=== PATIENT | male | born 1965 | race Caucasian/White ===

== ENCOUNTER 2018-11-14 19:22 | Emergency (ER) | payer SELFPAY ==
--- NOTE | 2018-11-14 19:55 | NUR ---
1st attempt to call patient in for triage, patient refuses to enter the ER. Patient states " I am just going to sleep here for a bit".
--- NOTE | 2018-11-14 20:07 | NUR ---
Attempted to call patient in for triage. Patient refused to come in after being prompted by this RN. Patient currently remains in the waiting area, requests to continue sleeping.
--- NOTE | 2018-11-14 20:13 | NUR ---
Patient called into room for triage, patient fell asleep during triage on multiple occasions. Patient evaluated to obtain information regarding his pain , location, severity. Patient then invited back in order to be placed into an ER bed. Patient stood up, walked up to the exit door. Patient then states " Say goodbye to your hospital". After this the patient proceeds to leave the ER waiting area, and walks off the property.
== END 2018-11-14 20:16 | disposition left against medical advice (07) ==
LOC: ER 19:24
DX: Z53.21 Procedure and treatment not carried out due to patient leaving prior to being seen by health care provider (principal)

== ENCOUNTER 2020-05-26 06:36 | Emergency (ER) | payer SELFPAY ==
[~2020-05-26] VITALS: Ht 175.3 cm; Wt 81.6 kg
--- NOTE | 2020-05-26 06:51 | NUR ---
Dr. Resendez at bedside for MSE
[2020-05-26] MEDS ORDERED: SULFAMETH/TRIMETH 800/160 MG TABLET PO ONE (07:00)
[2020-05-26] MEDS ORDERED: HYDROCODONE/APAP 10-325 MG TABLET ONE (07:00)
[2020-05-26] MEDS ORDERED: SULFAMETH/TRIMETH 800/160 MG TABLET ONE (07:00)
[2020-05-26] MEDS ORDERED: HYDROCODONE/APAP 10-325 MG TABLET PO ONE (07:00)
--- NOTE | 2020-05-26 07:02 | NUR ---
Patient discharged to home in stable condition. Written and verbal after care instructions given. Patient verbalizes understanding of instructions. Stressed follow up or return to ER for worsening s/s. AA/ox4. able to speak in complete sentences no s/s of distress in stable condition ambulatory with steady gait all belongings with pt
[2020-05-26 07:04] VITALS: BP 143/90
== END 2020-05-26 07:18 | disposition home or self-care (01) ==
LOC: ER 06:48
DX: S50.311A Abrasion of right elbow, initial encounter (principal); L08.9 Local infection of the skin and subcutaneous tissue, unspecified; B95.8 Unspecified staphylococcus as the cause of diseases classified elsewhere; X58.XXXA Exposure to other specified factors, initial encounter; Y92.89 Other specified places as the place of occurrence of the external cause; K08.89 Other specified disorders of teeth and supporting structures; F10.20 Alcohol dependence, uncomplicated; Z59.0 Homelessness; F17.200 Nicotine dependence, unspecified, uncomplicated
CPT/HCPCS: A4663

== ENCOUNTER 2021-03-09 20:57 | Emergency (ER) | payer SELFPAY ==
[~2021-03-09] VITALS: Ht 180.3 cm; Wt 81.6 kg
--- NOTE | 2021-03-09 21:10 | NUR ---
Abiodun brought in by [address] [employer]. Patient handcuffed to [facility] (by [employer] Officers) upon entry to ER. Patient was found in the middle of the street - also (according to [employer]) was going to stores and throwing objects and breaking things. Patient is A&Ox2. Anxious, paranoid, and emotionally labile (screaming, yelling, combative). Poor historian and unable to provide many details in regards to medical history. Sinus Rhythm on the monitor. No reports of any chest pain, no diaphoresis, afebrile, no chills. Patient is saturating >94% on Room air. No labored breathing. No dyspnea. No SOB. GI/: No reported issues.
[2021-03-09] MEDS ORDERED: IV NORMAL SALINE 1000 ML BAG IV ONE (21:15)
[2021-03-09 21:32] LABS: BASOPHILS # (AUTO) 0.1 K/uL (0.0-8.0); BASOPHILS % (AUTO) 1.2 % (0.0-2.0); EOSINOPHILS # (AUTO) 0.1 K/uL (0.0-0.7); EOSINOPHILS % (AUTO) 2.3 % (0.0-7.0); HEMATOCRIT 41.4 % (36.7-47.1); HEMOGLOBIN 14.4 g/dL (12.5-16.3); LYMPHOCYTES # (AUTO) 2.1 K/uL (20.0-40.0); LYMPHOCYTES % (AUTO) 39.9 % (20.5-51.5); MEAN CORPUSCULAR HEMOGLOBIN 35.1 uug (23.8-33.4); MEAN CORPUSCULAR HGB CONC 35 g/dL (32.5-36.3); MEAN CORPUSCULAR VOLUME 100.9 fL (73.0-96.2); MONOCYTES # (AUTO) 0.6 K/uL (2.0-10.0); MONOCYTES % (AUTO) 10.9 % (0.0-11.0); NEUTROPHILS # (AUTO) 2.4 K/uL (1.8-8.9); NEUTROPHILS % (AUTO) 45.7 % (38.5-71.5); PLATELET COUNT (AUTO) 193 K/uL (152-348); WHITE BLOOD COUNT (AUTO) 5.3 K/uL (3.6-10.2)
[2021-03-09 21:35] LABS: CREATININE 0.9 mg/dL (0.6-1.3); POTASSIUM 2.9 mmol/L (3.5-5.1)
[2021-03-09 21:47] LABS: BILIRUBIN,DIRECT 0.3 mg/dL (0.0-0.2); BILIRUBIN,TOTAL 0.6 mg/dL (0.2-1.0); TOTAL PROTEIN, SERUM 7.6 g/dL (6.4-8.2)
[2021-03-09] MEDS ORDERED: HALOPERIDOL LACTATE 5 MG/1 ML VIAL IM ONE (22:00)
[2021-03-09] MEDS ORDERED: LORAZEPAM 2 MG/1 ML VIAL IM ONE (22:00)
[2021-03-09] MEDS ORDERED: HALOPERIDOL LACTATE 5 MG/1 ML VIAL ONE (22:02)
[2021-03-09] MEDS ORDERED: LORAZEPAM 2 MG/1 ML VIAL ONE (22:02)
--- NOTE | 2021-03-09 22:05 | NUR ---
Patient screaming at yelling. "Ill kill you", "Im going to meet you on the other side of the street", "You aint gonna make it". Attempts made to calm patient down. Will monitor and assess.
--- NOTE | 2021-03-09 22:10 | NUR ---
Patient got out of bed, ripped out IV and started to threaten ER staff. Yelling, screaming, shouting, throwing punches all the meanwhile his blood is dripping all over the floor and on staff. FANI MCBRIDE CALLED. Patient was escorted back to his bed by security and nursing staff. Patient put on restraints for safety of himself and safety of ER staff. Pulses palpated in all four extremities, warmth, color, and cap refill also present in all four extremities.
--- NOTE | 2021-03-09 23:00 | NUR ---
Patient is in bed. Restraints on - See Restraint Intervention form. Continous monitoring in place. Safety measures in place. Put on 3L Nasal Canula at this time
[2021-03-09] MEDS ORDERED: KETAMINE HCL 500 MG/10 ML INJ ONE (23:08)
--- NOTE | 2021-03-09 23:35 | NUR ---
Restraints removed at this time - safety measures in place
[2021-03-10] MEDS ORDERED: KETAMINE HCL 500 MG/10 ML INJ IM ONE
[2021-03-10 01:22] LABS: *BILIRUBIN,URIN NEGATIVE (NEGATIVE); *BLOOD, URINE 1+ (NEGATIVE); *CLARITY,URINE CLEAR (CLEAR); *COLOR,URINE YELLOW (YELLOW); *KETONES,URINE NEGATIVE (NEGATIVE); LEUKOCYTE ESTERASE ,URINE NEGATIVE (NEGATIVE); NITRITE, URINE NEGATIVE (NEGATIVE); UGLUCOSE NEGATIVE (NEGATIVE)
[2021-03-10 01:33] LABS: BACTERIA,URINE NONE SEEN /HPF (NONE SEEN); RBC,URINE 0-3 /HPF (0-3); SQUAMOUS EPITHELIAL CELL,UR FEW /HPF (NONE SEEN); WBC,URINE 0-3 /HPF (0-3)
[2021-03-10 01:35] LABS: *AMPHETAMINE, URINE NEGATIVE (NEGATIVE); *CANNABINOID, URINE NEGATIVE (NEGATIVE); *COCCAINE, URINE NEGATIVE (NEGATIVE); *OPIATE, URINE NEGATIVE (NEGATIVE); *PHENCYCLIDINE SCREEN,URINE NEGATIVE (NEGATIVE)
[2021-03-10] MEDS ORDERED: THIAMINE HCL 200 MG/2 ML VIAL IV ONE (02:45)
[2021-03-10] MEDS ORDERED: IV LACTATED RINGERS SOLUTION 1,000 ML IV PRN (02:45)
[2021-03-10] MEDS ORDERED: FOLIC ACID 5 MG/ML VIAL IV ONE (02:45)
[2021-03-10] MEDS ORDERED: THIAMINE HCL 200 MG/2 ML VIAL ONE (02:49)
[2021-03-10] MEDS ORDERED: POTASSIUM CHLORIDE 50 ML ONE ×4 (02:49→08:18)
[2021-03-10] MEDS ORDERED: MAGNESIUM SULFATE/D5W 100 ML ONE ×2 (02:50→03:27)
--- NOTE | 2021-03-10 03:00 | NUR ---
Patient put on bilateral wrist restraints for disruption of care. Patient pulling at newly inserted IV line, risk for fall, pulling at wiring. Danger to self - and danger to others. Neuro checks done. Warmth, cap refill, feeling, strength present in all four extremities.
[2021-03-10] MEDS: MAGNESIUM SULFATE/D5W 100 ML IV SCH ×2 (03:06→03:44)
--- NOTE | 2021-03-10 03:07 | NUR ---
Folic Acid not able to be given - Medication not available in pyxis
[2021-03-10] MEDS: POTASSIUM CHLORIDE 50 ML IV SCH ×4 (04:43→08:03)
--- NOTE | 2021-03-10 05:20 | NUR ---
Restraints removed at this time. VSS.
--- NOTE | 2021-03-10 07:18 | NUR ---
PT IS RESTING IN BED COMFORTABLY. NO S/S OF ACUTE DISTRESS AT THIS TIME. CONTINUE TO MONITOR THE PT.
--- NOTE | 2021-03-10 08:31 | NUR ---
PT ATE BREAKFAST, 80% OF THE BREAKFAST TRAY. PT IS RESTING IN BED NO S/S OF DISTRESS. CONTINUE TO MONITOR THE PT.
--- NOTE | 2021-03-10 08:44 | NUR ---
TAX PROCESSOR KENNA WAS CALLED ACCORDING TO DR GEORGE ORDER TO EVALUATED PT's NEEDS. MESSAGE WAS LEFT.
--- NOTE | 2021-03-10 09:16 | NUR ---
PT WENT TO RESTROOM TO URINATE. GAIT WAS STABLE. PT REFUSED HOISTING ENGINE OPERATOR EVALUATION. PT REQUESTED TO BE DISCHARGED FROM [facility] ER. DR GEORGE NOTIFIED.
--- NOTE | 2021-03-10 09:34 | NUR ---
PT WAS D/C'd FROM [facility] ER. GAIT IS STABLE, NO S/S OF DISTRESS AT THIS TIME. D/C INSTRUCTIONS GIVEN TO THE PT. PT VERBALISED FULL UNDERSTANDING.
[2021-03-10 09:36] VITALS: BP 149/97
== END 2021-03-10 09:36 | disposition home or self-care (01) ==
LOC: ER 20:58
DX: F10.221 Alcohol dependence with intoxication delirium (principal); Y90.8 Blood alcohol level of 240 mg/100 ml or more; E87.6 Hypokalemia; Z78.1 Physical restraint status; F17.210 Nicotine dependence, cigarettes, uncomplicated; R03.0 Elevated blood-pressure reading, without diagnosis of hypertension; Z59.0 Homelessness; I67.2 Cerebral atherosclerosis
CPT/HCPCS: 36415 ×2; 70450; 80048; 80076; 80307; 80320; 81001; 82550; 85025; 96361; 96365; 96366; 96368; 96372; 96375; 99285; J1630; J2060; J3411; J3475 ×2; J3480 ×4; J3490; J7120; 93005; A4663; C1758; G0480; J7030

== ENCOUNTER 2024-04-01 03:42 | Emergency (ER) | payer OTHER ==
[~2024-04-01] VITALS: Ht 182.9 cm; Wt 81.6 kg
[2024-04-01 05:05] LABS: BASOPHILS # (AUTO) 0.1 K/UL (0.0-0.2); BASOPHILS % (AUTO) 0.9 % (0.0-2.0); DIFFERENTIAL COMMENT 0; EOSINOPHILS % (AUTO) 0.5 % (0.0-7.0); HEMATOCRIT 45.5 % (36.7-47.1); HEMOGLOBIN 15.8 g/dL (12.5-16.3); LYMPHOCYTES # (AUTO) 0.9 K/uL (0.8-4.8); LYMPHOCYTES % (AUTO) 15.4 % (20.5-51.5); MEAN CORPUSCULAR HEMOGLOBIN 35.6 uug (23.8-33.4); MEAN CORPUSCULAR HGB CONC 35 g/dL (32.5-36.3); MEAN CORPUSCULAR VOLUME 102.4 fL (73.0-96.2); MONOCYTES # (AUTO) 0.9 K/uL (0.1-1.30); MONOCYTES % (AUTO) 14.2 % (0.0-11.0); NEUTROPHILS # (AUTO) 4.3 K/uL (1.8-8.9); PLATELET COUNT (AUTO) 129 K/uL (152-348); RED BLOOD CELL COUNT(AUTO) 4.44 MIL/uL (4.06-5.63); RED CELL DISTRIBUTION WIDTH 13.4 % (12.1-16.2); WHITE BLOOD COUNT (AUTO) 6.2 K/uL (3.6-10.2)
[2024-04-01] MEDS ORDERED: AZITHROMYCIN 500MG/ D5W 250ML IVPB **ER PYXIS ONLY IV ONE (05:32)
[2024-04-01 05:33] LABS: ALBUMIN 3.8 g/dL (3.4-5.0); BILIRUBIN,DIRECT 1.6 mg/dL (0.0-0.2); BILIRUBIN,TOTAL 3.4 mg/dL (0.2-1.0); CALCIUM 9.5 mg/dL (8.5-10.1); TOTAL PROTEIN, SERUM 8.7 g/dL (6.4-8.2)
[2024-04-01 05:36] LABS: POTASSIUM 2.6 mmol/L (3.5-5.1)
[2024-04-01] MEDS: AZITHROMYCIN IV 500 MG in IV DEXTROSE 5% 250 ML IV ONE (05:43)
[2024-04-01] MEDS ORDERED: POTASSIUM CHLORIDE 20 MEQ TAB.PRT.SR ONE (05:47)
[2024-04-01] MEDS ORDERED: IV D5W-0.45% NS +20 KCL 1,000 ML IV ONE (05:48)
[2024-04-01] MEDS: POTASSIUM CHLORIDE 20 MEQ TAB.PRT.SR PO ONE (05:51)
[2024-04-01] MEDS ORDERED: ONDANSETRON 4 MG/2 ML VIAL ONE (05:51)
[2024-04-01] MEDS: IV D5W-0.45% NS +20 KCL 1,000 ML IV ONE (05:59)
[2024-04-01] MEDS: ONDANSETRON 4 MG/2 ML VIAL IV ONE (06:00)
[2024-04-01] MEDS ORDERED: MAGNESIUM SULFATE/D5W 100 ML ONE ×3 (06:02→08:14)
[2024-04-01] MEDS: MAGNESIUM SULFATE/D5W 100 ML IV SCH (06:12)
[2024-04-01] MEDS ORDERED: SWABABLE VALVE TRANSFER SET EA MC ONE (08:31)
[2024-04-01] MEDS ORDERED: IOHEXOL 350 100 ML INFUS..BTL ONE (08:31)
[2024-04-01] MEDS ORDERED: IV NORMAL SALINE 250 ML IV ONE (08:32)
[2024-04-01] MEDS ORDERED: AZIT500T PO (11:42)
[2024-04-01 11:50] VITALS: BP 133/78; TEMP 98; O2SAT 99
== END 2024-04-01 11:50 | disposition home or self-care (01) ==
LOC: ER 03:48
DX: R04.2 Hemoptysis (principal); J18.1 Lobar pneumonia, unspecified organism; E87.6 Hypokalemia; F17.210 Nicotine dependence, cigarettes, uncomplicated; Z59.00 Homelessness unspecified; Z79.1 Long term (current) use of non-steroidal anti-inflammatories (NSAID); Z20.822 Contact with and (suspected) exposure to COVID-19
CPT/HCPCS: 99285; 96365; 71275; 96366; 71045; 96375; 99406; 87426; 87804 ×2; 80076; 80048; 83880; 83735; 85025; 87040 ×2; 36415; 96368; J0456; J3475 ×3; J2405; Q9967; A4606; A4663